=== PATIENT | female | born 2005 | race Caucasian/White ===

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

== ENCOUNTER 2024-01-30 11:16 | Outpatient (REF) | payer SELFPAY ==
[2024-01-30 13:34] LABS: MANUAL DIFF FLAG NO
[2024-01-30 13:51] LABS: Basophils Percent Auto 0.5 % (0-2); Eosinophils Absolute Auto 0.1 X10*3/uL (0.0-0.4); Eosinophils Percent Auto 0.8 % (0-4); Hematocrit 42.2 % (37.0-47.0); Hemoglobin 14.4 g/dl (12.0-16.0); Imm Gran Abs Auto 0.02 X10*3/uL (0.00-0.03); Imm Gran Pct Auto 0.3 % (0.0-0.4); Lymphocytes Absolute Auto 2.9 X10*3/uL (1.2-4.9); Lymphocytes Percent Auto 47.4 % (20-40); Mean Corpuscular HGB Conc 34.1 g/dl (31.0-35.0); Mean Corpuscular Hemoglobin 29.8 pg (27.0-33.0); Mean Corpuscular Volume 87.2 fL (80.0-98.0); Mean Platelet Volume 10.2 fL (9.4-12.3); Monocytes Absolute Auto 0.4 X10*3/uL (0.1-1.2); Monocytes Percent Auto 6.9 % (2-11); Neutrophils Absolute Auto 2.7 x10*3/uL (2.0-8.3); Neutrophils Percent Auto 44.1 % (45-73); Platelet Count 291 X10*3/uL (160-400); Red Blood Count 4.84 X10*6/uL (4.20-5.50); White Blood Count 6.2 X10*3/uL (4.8-10.8)
[2024-01-30 14:09] LABS: Estimated Average Glucose 100 mg/dL; Hemoglobin A1c % 5.1 % (<6.0)
[2024-01-30 14:20] LABS: Alanine Aminotransferase 15 U/L (0-31); Albumin Level 4.7 g/dL (3.5-5.0); Alkaline Phosphatase 96 U/L (39-117); Anion Gap 16 (12-20); Aspartate Amino Transferase 17 U/L (5-31); Bilirubin Total 0.5 mg/dL (0.0-1.0); Blood Urea Nitrogen 8 mg/dL (9-16); Calcium 10.2 mg/dL (8.4-10.2); Carbon Dioxide 24 mmol/L (22-29); Chloride 104 mmol/L (96-108); Cholesterol 225 mg/dL (<200); Estimated Glomerular Filt Rate > 60; Glucose Random 94 mg/dL (60-115); HDL Cholesterol 45 mg/dL (>40); LDL Cholesterol Calculated 157 mg/dL (<100); Potassium 3.6 mmol/L (3.3-5.1); Sodium 140 mmol/L (135-145); TSH reflex Free T4 3.33 uIU/mL (0.32-4.0); Total Protein 8.2 g/dL (6.5-8.0); Triglycerides 119 mg/dL (<150)
[2024-01-31 05:26] LABS: HBS Num1 0.23 mIU/mL (0-7.99); HBc Num1 0.09 S/CO (0.00-0.79); HBsAGNum1 0.38 S/CO (0.00-0.99); HIV AB/AG Nonreactive (Nonreactive); HIV Num 1 0.06 S/CO (0.00-0.99); Hepatitis B Core Antibody Nonreactive (Nonreactive); Hepatitis B Surface Antigen Negative (Negative); ~HepC Num1 0.06 S/CO (0.00-0.79); ~Hepatitis B Surface Antibody NONREACTIVE (Nonreactive); ~Hepatitis C Antibody Nonreactive (Nonreactive)
== END 2024-01-30 11:17 | disposition home or self-care (01) ==
LOC: HO.HHCL 11:16
PROVIDERS: Visit Provider Nurse Practitioner
DX: E66.09 Other obesity due to excess calories (principal); R53.83 Other fatigue; Z11.3 Encounter for screening for infections with a predominantly sexual mode of transmission; Z68.31 Body mass index [BMI] 31.0-31.9, adult
CPT/HCPCS: 36415; 80053; 80061; 83036; 84443; 85025; 86704; 86706; 86803; 87340; 87389

== ENCOUNTER 2024-10-22 12:01 | Outpatient (REF) | payer MEDICAID, SELFPAY ==
[2024-10-22 13:06] LABS: MANUAL DIFF FLAG NO
[2024-10-22 13:19] LABS: Basophils Percent Auto 0.5 % (0-2); Eosinophils Percent Auto 0.3 % (0-4); Hematocrit 39.1 % (37.0-47.0); Hemoglobin 13.5 g/dl (12.0-16.0); Imm Gran Abs Auto 0.03 X10*3/uL (0.00-0.03); Imm Gran Pct Auto 0.5 % (0.0-0.4); Lymphocytes Absolute Auto 2.4 X10*3/uL (1.2-4.9); Lymphocytes Percent Auto 36.5 % (20-40); Mean Corpuscular HGB Conc 34.5 g/dl (31.0-35.0); Mean Corpuscular Hemoglobin 29.9 pg (27.0-33.0); Mean Corpuscular Volume 86.7 fL (80.0-98.0); Monocytes Absolute Auto 0.6 X10*3/uL (0.1-1.2); Monocytes Percent Auto 9.5 % (2-11); Neutrophils Absolute Auto 3.5 x10*3/uL (2.0-8.3); Neutrophils Percent Auto 52.7 % (45-73); Platelet Count 341 X10*3/uL (160-400); Red Blood Count 4.51 X10*6/uL (4.20-5.50); Red Cell Distribution Width 11.9 % (11.0-16.0); White Blood Count 6.7 X10*3/uL (4.8-10.8)
[2024-10-22 13:30] LABS: Anion Gap 16 (12-20); Blood Urea Nitrogen 11 mg/dL (9-16); Calcium 10.2 mg/dL (8.4-10.2); Carbon Dioxide 21 mmol/L (22-29); Chloride 108 mmol/L (96-108); Estimated Glomerular Filt Rate > 60; Glucose Random 92 mg/dL (60-115); Potassium 3.8 mmol/L (3.3-5.1); Sodium 141 mmol/L (135-145)
[2024-10-22 13:46] LABS: TSH reflex Free T4 1.92 uIU/mL (0.32-4.0); Vitamin D 25-OH Total 19.7 ng/mL (>30)
== END 2024-10-22 12:02 | disposition home or self-care (01) ==
LOC: HO.HHCL 12:01
PROVIDERS: Visit Provider Nurse Practitioner
DX: R53.83 Other fatigue (principal)
CPT/HCPCS: 36415; 80048; 82306; 84443; 85025

== ENCOUNTER 2025-05-20 12:47 | Outpatient (REF) | payer MEDICAID, SELFPAY ==
--- OUTSIDE RECORDS SUMMARY | 2025-05-18 14:30 | XMS_ITS | Encounter Summary ---
Author Organization [employer] Address [address] [facility] [address] [place] [address] Care Team Providers Care Sleeve Wheel Maker Name Role Phone Anayeli Mclaughlin NP Primary Care Provider [phone] Reason for Visit * Reason Comments Follow-up Encounter Details Date Type Department Care Team (Late st Contact Info) Description 05/18/2025 2:30 PM EDT Office Visit [facility] MEDICINE [address] [place] [address] Anayeli Mclaughlin NP [address] [place] [address] Constipation, unspecified constipation type (Primary Dx); Hypovitaminosis D; Anxiety and depression Social History Tobacco Use Types Packs/Day Years Used Date Smoking Tobacco: Never Passive Smoke Exposure: Past Smokeless Tobacco: Never Comments:Pt states she has q uit smoking weed/ Hooka for 1 year . Use to vape for 2 years, has stopped for 3 years now Alcohol Use Standard Drinks/Week Comments Yes 1 (1 standard drink = 0.6 oz pure alcohol) drinks wine socially at parties Depression Answer Date Recorded Patient Health Questionnaire-9 Score 9 05/18/2025 Patient Health Questionnaire-9 Score 9 05/18/2025 Last PHQ-9: Questionnaire Data Not on file 0 05/18/2025 Housing Stability Answer Date Recorded What is your housing situation today? I am not s ure 05/18/[address] you li ve. Do you have problems with any of the following? None of the above 05/18/2025 Food Insecurity Answer Date Recorded Within the past 12 months, y ou worried that your food would run out before you got money to buy more: Never True 05/18/2025 Within the past 12 months,th e food you bought just didn't last and you didn't have enough money to get more: Never True 08/2025 Transportation Answer Date Recorded In the past 12 months, has l ack of transportation kept you from medical appts, meetings, work or from getting things needed for daily living? No 05/18/2025 Utilities Answer Date Recorded In the past 12 months, has t he electric, gas, oil or water company threatened to shut off services in your home? No 05/18/2025 Depression Answer Date Recorded Patient Health Questionnaire-2 Score 2 05/18/2025 Internet Access Answer Date Recorded Internet Access Q1 Yes 05/18/2025 Internet Access Q2 Not on file 05/18/2025 Comments No Sex and Gender Information Value Date Recorded Sex Assigned at Female 08/07/2022 10:19 AM EDT Legal Sex Female 10:19 AM EDT Gender Identity Female 08/07/2022 10:19 AM EDT Sexual Orientation Straight 06/20/2023 12 :44 PM EDT documented as of this encounter Last Filed Vital Signs Vital Sign Reading Time Taken Comments Blood Pressure 110/80 05/18/2025 2:48 PM EDT Pulse 86 05/18/2025 2:48 PM EDT Temperature 37.1 C (98.8 F) 05/18/2025 2:48 PM EDT Respiratory Rate 22 05/18/2025 2:48 PM EDT Oxygen Saturation 99% 05/18/2025 2:48 PM EDT Inhaled Oxygen Concentration - - Weight 71.8 kg (158 lb 6.4 oz) 05/18/2025 2:48 P M EDT Height 160 cm (5' 3 ) 05/18/2025 2:48 PM EDT Body Mass Index 28.06 05/18/2025 2:48 PM EDT documented in this encounter Functional Status * Over the past 2 weeks, how often have you been bothered by any of the following problems? Question Answer Date of Assessment Author Patient Health Questionnaire -2 Score 2 05/18/2025 2:51 PM EDT Efrem Alatorre [place] * Little interest or pleasure in doing things Answer Date of Assessment Author More than half the days 05/18/2025 2:51 PM EDT Efrem Saunders [place] * Feeling down, depressed, or hopeless Answer Date of Assessment Author Not at all 05/18/2025 2:51 PM EDT Efrem Alatorre [place] * Trouble falling or staying asleep, or sleeping too much Answer Date of Assessment Author Several days 05/18/2025 2:51 PM EDT Efrem Alatorre MA * Feeling tired or having little energy Answer Date of Assessment Author Nearly every day 05/18/2025 2:51 PM EDT Efrem Alatorre [place] * Poor appetite or overeating Answer Date of Assessment Author Several days 05/18/2025 2:51 PM EDT Efrem Alatorre MA * Feeling bad about yourself - or that you are a failure or have let yourself or your family down Answer Date of Assessment Author Not at all 05/18/2025 2:51 PM EDT Efrem Alatorre MA * Trouble concentrating on things, such as reading the newspaper or watching television Answer Date of Assessment Author Several days 05/18/2025 2:51 PM EDT Efrem Alatorre MA * Moving or speaking so slowly that other people could have noticed? Or the opposite - being so fidgety or restless that you have been moving around a lot more than usual. Answer Date of Assessment Author Several days 05/18/2025 2:51 PM INEZT Efrem Alatorre MA * Thoughts that you would be better off or hurting yourself in some way Answer Date of Assessment Author Not at all 05/18/2025 2:51 PM INEZT Efrem Alatorre MA * Patient Health Questionnaire-9 Score Answer Date of Assessment Author 9 05/18/2025 2:51 PM INEZT Efrem Alatorre MA * How difficult have these problems made it for you to do your work, take care of things at home, or get along with other people? Answer Date of Assessment Author Somewhat difficult 05/18/2025 2:51 PM EDT Efrem Lobo MA * Over the last 2 weeks, how often have you been bothered by any of the following problems? Question Answer Date of Assessment Author Feeling nervous, anxious, or on edge 2 05/18/2025 2:50 PM EDT Efrem Alatorre MA Not being able to stop or co ntrol worrying 3 05/18/2025 2:50 PM EDT Efrem Alatorre MA Worrying too much about diff erent things 2 05/18/2025 2:50 PM EDT Efrem Alatorre MA Trouble relaxing 2 05/18/2025 2:50 PM EDT Efrem Saunders MA Being so restless that it is hard to sit still 2 05/18/2025 2:50 PM EDT Efrem Alatorre MA Becoming easily annoyed or irritable 3 05/18/2025 2:50 PM EDT Efrem Alatorre MA Feeling afraid as if somethi ng awful might happen 2 05/18/2025 2:50 PM EDT Efrem Alatorre MA MISTI-7 Total Score 16 05/18/2025 2:50 PM EDT Efrem Alatorre MA documented as of this encounter Plan of Treatment Upcoming Encounters Date Type Department Care Team (Late st Contact Info) Description 05/25/2025 3:30 PM EDT Telemedicine [facility] MEDICINE [address] [place] [id number] Anayeli Mclaughlin NP [address] [place] [address] 06/05/2025 1:00 PM EDT Office Visit [facility] OPTOMETRY [address] [place] [address] Funmilayo Umana OD [address] [place] [address] 07/02/2025 1:00 PM EDT Clinical Support [facility] MEDICINE [address] [place] [phone] documented as of this encounter Visit Diagnoses Diagnosis Constipation, unspecified constipation type- Primary Hypovitaminosis D Unspecified vitamin D deficiency Anxiety and depression documented in this encounter Additional Health Concerns Assessment Noted Time PHQ-9 Depression Total Score: 9 05/18/20 25 2:51 PM EDT documented as of this encounter Care Teams Sleeve Wheel Maker Relationship Specialty Start Date End Date Anayeli Mclaughlin NP [address] [place] [address] PCP - General Family Medicine 09/13/23 documented as of this encounter
--- NOTE | ~2025-05-20 | US_ITS ---
EXAMINATION: US ABDOMEN HISTORY: LOWER ABDOMINAL PAIN TECHNIQUE: Real-time grayscale ultrasound imaging of the abdomen was performed and images were reviewed. COMPARISON: There are no prior studies available for comparison. FINDINGS: Liver: The right lobe of the liver measures 13.0 cm in size. The left lobe of the liver measures 8.4 cm in size. The liver demonstrates normal homogeneous echotexture. No focal mass or intrahepatic biliary ductal dilatation is identified. There is normal hepatopedal flow in the portal vein. Gallbladder and biliary tree: The gallbladder is unremarkable, without evidence of calculi, wall thickening, or pericholecystic fluid. There is no sonographic Bowens sign. The common bile duct is normal in caliber measuring 3 mm. Kidneys: The right kidney measures 9.5 cm in length. The left kidney measures 9.6 cm in length. The kidneys are unremarkable, without evidence of masses, hydronephrosis, or calculi. Pancreas: The pancreas is not well visualized. Spleen: The spleen is normal in size and contour, measuring 9.9 cm in length. Abdominal aorta and inferior vena cava: The visualized portions of the abdominal aorta and inferior vena cava are normal in caliber. There is no free fluid in the abdomen. US/US abdomen complete IMPRESSION: The pancreas is not well visualized. Otherwise unremarkable abdominal ultrasound. Electronically signed by: Denis eGorge MD 05/20/2025 01:33 PM EDT
--- OUTSIDE RECORDS SUMMARY | 2025-05-20 13:16 | XMS_ITS | Encounter Summary ---
Author Organization [facility] Address [address] [place] [address] Phone Care Team Providers Care Chute Builder Name Role Phone Unavailable Primary Care Provider Unavailabl e Encounter Details Date Type Department Care Team (Late st Contact Info) Description 05/24/2017 Conversion Encounter [facility] - [address] [address] Social History Tobacco Use Types Packs/Day Years Used Date Smoking Tobacco: Never Assessed Comments Unknown Sex and Gender Information Value Date Recorded Sex Assigned at Not on file Legal Sex Female 4:14 PM EDT Gender Identity Not on file Sexual Orientation Not on file documented as of this encounter Plan of Treatment Not on file documented as of this encounter Visit Diagnoses Not on filedocumented in this encounter
== END 2025-05-20 12:48 | disposition home or self-care (01) ==
LOC: HO.US 12:47
PROVIDERS: Visit Provider Nurse Practitioner
DX: R10.30 Lower abdominal pain, unspecified (principal)
CPT/HCPCS: 76700

== ENCOUNTER → 2025-05-20 13:00 | Outpatient (BNV) | payer MEDICAID, SELFPAY | PROVIDERS: Visit Provider Radiology Diagnostic Radiology | DX: R10.30 Lower abdominal pain, unspecified (principal) | CPT/HCPCS: 76700 ==

== ENCOUNTER 2025-07-02 16:28 | Outpatient (REF) | payer MEDICAID, SELFPAY ==
--- OUTSIDE RECORDS SUMMARY | 2025-07-02 13:40 | XMS_ITS | Encounter Summary ---
Author Organization [employer] Address [address] [facility] 7 [place] [address] Care Team Providers Care Hydrochloric Area Supervisor Name Role Phone Anayeli Mclaughlin NP Primary Care Provider [phone] Reason for Visit * Reason Comments Depo Encounter Details Date Type Department Care Team ([facility] st Contact Info) Description 07/02/2025 1:40 PM EDT Office Visit [facility] [address] [place] [address] Princess Jimenez MD [address] [place] [address] Chest wall pain (Primary Dx); Encounter for counseling regarding contraception; Perineal pain in female; Chronic constipation Social History Tobacco Use Types Packs/Day Years Used Date Smoking Tobacco: Never Passive Smoke Exposure: Past Smokeless Tobacco: Never Tobacco Cessation:Counseling Given: Not Answered Comments:Pt states she has quit smoking weed/ Hooka for 1 year . [...] Sign Reading Time Taken Comments Blood Pressure 121/74 07/02/2025 1:28 PM EDT Pulse 97 07/02/2025 1:28 PM EDT Temperature 36.7 C (98 F) 07/02/2025 1:28 PM EDT Respiratory Rate 16 07/02/2025 1:28 PM EDT Oxygen Saturation 99% 07/02/2025 1:28 PM EDT Inhaled Oxygen Concentration - - Weight 71.7 kg (158 lb) 07/02/2025 1:28 PM EDT Height - - Body Mass Index 27.99 05/18/2025 2:48 PM EDT documented in this encounter Progress Notes * Princess Jimenez MD - 07/02/2025 1:20 PM EDT JUANA Sharma is a 19 y.o. female patient of Anayeli Mclaughlin NP who presents for chestwall pain and perineal pain. HPI Florencia was at the clinic today for a depo shot, but she told the nurse she was having chest wall pain after having some cough this past week. The cough is now resolved. It started after some nasal congestion, sore throat and subjective chills, but the cough is now resolved. Reports the pain is sharp, occurs with sneezing, sometimes with deep breathing or coughing, sometimes at night. Denies palpitations, leg swelling. She is also concerned about some pulsing clitoral pain associated with a yellowish discharge. Uses condoms during intercourse. No dysuria. Review of Systems Constitutional: Positive for chills. Negative for fever. HENT: Positive for congestion and sneezing. Negative for ear pain, postnasal drip and rhinorrhea. Respiratory: Positive for cough (resolved). Negative for apnea and shortness of breath. Cardiovascular: Positive for chest pain. Negative for palpitations and leg swelling. Gastrointestinal: Positive for abdominal distention (intermittent), abdominal pain (intermittent) and constipation. Genitourinary: Positive for vaginal discharge. Negative for difficulty urinating, dyspareunia, dysuria, flank pain and urgency. OBJECTIVE BP 121/74 (BP Location: Right arm, Patient Position: Sitting, BP Cuff Size: Adult) Pulse 97 Temp 98 ??F (36.7 ??C) (Temporal) Resp 16 Wt 158 lb (71.7 kg) SpO2 99% BMI 27.99 kg/m?? Repeat pulse: 72 bpm Physical Exam HENT: Head: Normocephalic. Right Ear: Tympanic membrane, ear canal and external ear normal. Left Ear: Tympanic membrane, ear canal and external ear normal. Nose: Nose normal. Mouth/Throat: Mouth: Mucous membranes are moist. Pharynx: Posterior oropharyngeal erythema (mild) present. Tonsils: 2+ on the right. 2+ on the left. Cardiovascular: Rate and Rhythm: Normal rate and regular rhythm. Pulses: Normal pulses. Heart sounds: Normal heart sounds. Pulmonary: Effort: Pulmonary effort is normal. Breath sounds: Normal breath sounds. Chest: Chest wall: Tenderness (mild below left breast, mid-clavicular line left side) present. Abdominal: General: Abdomen is flat. Bowel sounds are normal. There is no distension. Palpations: Abdomen is soft. There is no mass. Tenderness: There is abdominal tenderness (epigastric, suprapubic). There is no right CVA tenderness, left CVA tenderness, guarding or rebound. Hernia: No hernia is present. Musculoskeletal: Right lower leg: No edema. Left lower leg: No edema. Lymphadenopathy: Cervical: No cervical adenopathy. Skin: General: Skin is warm and dry. Capillary Refill: Capillary refill takes less than 2 seconds. Neurological: General: No focal deficit present. Mental Status: She is alert. Psychiatric: Mood and Affect: Mood normal. Behavior: Behavior normal. Assessment/Plan Assessment/Plan Diagnoses and all orders for this visit: Chest wall pain: No palpable crepitance and no bruising or rash. Normal breath sounds and vitals. Recommended OTC ibuprofen or Tylenol as needed and to RTC if pain persists or worsens. Perineal pain in female: Declined physical examination of perineum. Given vaginal discharge, will check for BV and STIs. UA today normal x for trace ketones; she reports not eating anything yet todayas of 2pm. - Chlamydia/N. Gonorrhoeae RNA, TMA, Urogenitial - Bacterial Vaginosis - POCT urinalysis dipstick manually resulted Chronic constipation Has tried eating additional fruits and vegetables without improvement. Eats oatmeal somewhat regularly. Has not tried psyllium because insurance won't cover it. Drinks lots of water. I gave her handout from [employer] Date re: constipation in adults, and we reviewed the foods that are high in fiber, like beans, prunes. Also told her to try OTC generic psyllium 1 tsp/day in 8 oz water and to titrate up. Encounter for counseling regarding contraception - POCT Urine Future Appointments Date Time Provider Department Center 07/10/2025 3:30 PM Anayeli Mclaughlin NP MEDICINE [facility] 09/22/2025 10:30 AM Funmilayo Umana OD VISION [facility] documented in this encounter Plan of Treatment Upcoming Encounters Date Type Department Care Team (Late st Contact Info) Description 07/10/2025 3:30 PM EDT Telemedicine [facility] [address] [place] [address] Anayeli Mclaughlin NP [address] [place] [address] 09/17/2025 1:00 PM EST Clinical Support [facility] [address] [place] [address] 09/22/2025 10:30 AM EST Office Visit [facility] [address] [place] [address] Funmilayo Umana, OD [address] [place] [address] documented as of this encounter Procedures Procedure Name Priority Date/Time Associated Diagnosis Comments POCT URINALYSIS DIPSTICK Routine 07/02/2025 2:11 PM EDT Encounter for counseling regarding contraception BACTERIAL VAGINOSIS PANEL Routine 07/02/2025 1:56 PM EDT Encounter for counseling regarding contraception CHLAMYDIA/N. GONORRHOEAE RNA, TMA, UROGENITAL Routine 07/02/2025 1:56 PM EDT Encounter for counseling regarding contraception POCT , URINE Routine 07/02/2025 1:00 PM EDT Encounter for counseling regarding contraception documented in this encounter Results * POCT urinalysis dipstick manually resulted (07/02/2025 2:11 PM EDT) Color, UA Yellow Clarity, UA Clear Glucose, UA Negative Bilirubin, UA Negative Ketones, UA Negative Spec Grav, UA 1.020 Blood, UA Negative Negative, None Detected pH, UA 6.0 Protein, UA Negative Urobilinogen, UA 1.0 Leukocytes, UA Negative Negative, Rare, Trace Nitrite, UA Negative Negative, None Detected Appearance, UA OK Urine 07/02/2025 2:11 PM EDT Princess Jimenez MD POINT OF CARE TEST ENTER/EDIT ORDERABLES Final Result * Bacterial Vaginosis (07/02/2025 1:56 PM EDT) TRICHOMONAS VAGINALIS DETECTION BY PCR NOT DETECTED Not Detect [facility] BACTERIAL VAGINOSIS DETECTION BY PCR NEGATIVE Negative [facility] Comment:The BV organism targ ets of the Xpert Xpress MVP test can becommensal in women; Xpert Xpress MVP positive results forbacterial vaginosis should be considered in conjunction withother clinical and patient information to determine thedisease status. Organisms that are not detected by the XpertXpress MVP test have also been reported to be associatedwith BV and aerobic vaginitis.The Xpert Xpress MVP test performance has not been evaluatedin patients under the age of 14. DELANEY GROUP DETECTION BY PCR NOT DETECTED Not Detect [facility] Delaney glab krusei PCR NOT DETECTED Not Detect [facility] Swab Vaginal structure / Unknown 07/02/2025 1:56 PM EDT 07/02/2025 4:29 PM EDT us Princess Jimenez MD LAB MICROBIOLOGY - GENERAL OR DERABLES Final Result [facility] [address] [place] [phone] * Chlamydia/N. Gonorrhoeae RNA, TMA, Urogenitial (07/02/2025 1:56 PM EDT) CT PCR NOT DETECTED Not Detect. [facility] Comment:A not detected test result does not exclude the possibilityof infection because test results can be affected byimproper specimen collection, concurrent antibiotic therapy,or the number of organisms in the specimen which may bebelow the sensitivity of the test. As with many diagnostictests, results from the Xpert CT/NG assay should beinterpreted in conjunction with other laboratory andclinical data available to the clinician.Xpert CT/NG performance has not been evaluated in patientsless than 14 years of age. The assay should not be used forthe evaluationof suspected sexual abuse or for other medico-legalindications. Additional testing is recommended in anycircumstance when false positive or false negative resultscould lead to adverse medical, social or psychologicalconsequences. NG PCR NOT DETECTED Not Detect. [facility] Comment:A not detected test result does not exclude the possibilityof infection because test results can be affected byimproper specimen collection, concurrent antibiotic therapy,or the number of organisms in the specimen which may bebelow the sensitivity of the test. As with many diagnostictests, results from the Xpert CT/NG assay should beinterpreted in conjunction with other laboratory andclinical data available to the clinician.Xpert CT/NG performance has not been evaluated in patientsless than 14 years of age. The assay should not be used forthe evaluationof suspected sexual abuse or for other medico-legalindications. Additional testing is recommended in anycircumstance when false positive or false negative resultscould lead to adverse medical, social or psychologicalconsequences. Swab (Vaginal Swab) 07/02/2025 1:56 PM EDT 07/02/2025 4:29 PM EDT Princess Jimenez MD LAB MICROBIOLOGY - GENERAL OR DERABLES Final Result [facility] [address] [place] [phone] * POCT Urine (07/02/2025 1:00 PM EDT) Preg Test, Ur Negative Negative, Indeterminate, None Detected, Invalid, Specimen unsatisfactory for evaluation, Weakly Positive, 2+ QC Media Lot # [id number] Lot# Expiration Date [id number] Urine 07/02/2025 1:00 PM EDT Princess Jimenez MD POINT OF CARE TEST ENTER/EDIT ORDERABLES Final Result documented in this encounter Visit Diagnoses Diagnosis Chest wall pain- Primary Painful respiration Encounter for counseling regarding contraception Perineal pain in female Unspecified symptom associated with female genital organs Chronic constipation Unspecified constipation documented in this encounter Additional Health Concerns Assessment Noted Time PHQ-9 Depression Total Score: 9 05/18/20 25 2:51 PM EDT documented as of this encounter Care Teams Hydrochloric Area Supervisor Relationship Specialty Start Date End Date Anayeli Mclaughlin NP [address] [place] [id number] PCP - General Family Medicine 09/13/23 documented as of this encounter
[2025-07-02 17:52] LABS: Bacterial Vaginosis PCR NEGATIVE (Negative); Candida Group PCR NOT DETECTED (Not Detect); Candida glab krusei PCR NOT DETECTED (Not Detect); Trichomonas vaginalis PCR NOT DETECTED (Not Detect)
[2025-07-02 18:24] LABS: CT PCR NOT DETECTED (Not Detect.); NG PCR NOT DETECTED (Not Detect.)
--- OUTSIDE RECORDS SUMMARY | 2025-07-02 19:56 | XMS_ITS | Encounter Summary ---
Author Organization [employer] Address [address] [place] [address] 7 [place] [address] Care Team Providers Care Nursing Admin Name Role Phone Rahel Crain MD Primary Care Provider [phone] Anayeli Mclaughlin NP Primary Care Provider [phone] Reason for Visit * Reason Comments Med Refill Encounter Details Date Type Department Care Team (Late st Contact Info) Description 05/09/2023 Refill [facility] [address] [place] [address] Rahel Crain MD [address] [place] [address] Mixed anxiety and depressive disorder; Gastroesophageal reflux disease without esophagitis Social History Tobacco Use Types Packs/Day Years Used Date Smoking Tobacco: Some Days Cigarettes Passive Smoke Exposure: Past Smokeless Tobacco: Never Comments:Pt states she has q uit smoking weed/ Hooka for 1 year . Alcohol Use Standard Drinks/Week Comments Not Currently 0 (1 standard drink = 0.6 oz pur e alcohol) Depression Answer Date Recorded Patient Health Questionnaire-9 Score 9 04/06/2023 Depression Answer Date Recorded Patient Health Questionnaire-2 Score 2 04/06/2023 Comments Unknown Sex and Gender Information Value Date Recorded Sex Assigned at Female 08/07/2022 10:19 AM EDT Legal Sex Female 10:19 AM EDT Gender Identity Female 08/07/2022 10:19 AM EDT Sexual Orientation Straight 06/20/2023 12 :44 PM EDT COVID-19 Exposure Response Date Recorded In the last 10 days, have yo u been in contact with someone who was confirmed or suspected to have Coronavirus/COVID-19? No / Unsure 04/11/2023 2:20 PM EDT documented as of this encounter Plan of Treatment Upcoming Encounters Date Type Department Care Team (Late st Contact Info) Description 07/10/2025 3:30 PM EDT Telemedicine [facility] [address] [place] [phone] Anayeli Mclaughlin NP [address] [place] [address] 09/17/2025 1:00 PM EST Clinical Support [facility] [address] [place] [address] 09/22/2025 10:30 AM EST Office Visit [facility] [address] [place] [address] TarFunmilayo chávez, OD [address] [place] [address] documented as of this encounter Visit Diagnoses Diagnosis Mixed anxiety and depressive disorder Dysthymic disorder Gastroesophageal reflux disease without esophagitis Esophageal reflux documented in this encounter Additional Health Concerns Assessment Noted Time PHQ-9 Depression Total Score: 9 04/06/20 23 9:51 AM EDT documented as of this encounter Care Teams Nursing Admin Relationship Specialty Start Date End Date Rahel Crain MD [address] [place] [id number] PCP - General Pediatrics 06/06/18 09/12/23 Anayeli Mclaughlin NP [address] [place] [address] PCP - General Family Medicine 09/13/23 documented as of this encounter
--- OUTSIDE RECORDS SUMMARY | 2025-07-02 19:56 | XMS_ITS | Encounter Summary ---
Author Organization [email or web address] Address [address] [place] [address] 7 [place] [address] Care Team Providers Care Clinical Nurse Name Role Phone Mikkiroshni Anayeli DUNG Primary Care Provider Encounter Details Date Type Department Care Team (Late Contact Info) Description 09/13/2023 Orders Only [facility] [address] [place] [address] Rahel Crain MD [address] [place] [address] Social History Tobacco Use Types Packs/Day Years Used Date Smoking Tobacco: Some Days Cigarettes Passive Smoke Exposure: Past Smokeless Tobacco: Never Comments:Pt states she has q uit smoking weed/ Hooka for 1 year . Alcohol Use Standard Drinks/Week Comments Not Currently 0 (1 standard drink = 0.6 oz pur e alcohol) Depression Answer Date Recorded Patient Health Questionnaire-9 Score 11 08/02/2023 Patient Health Questionnaire-9 Score 11 08/02/2023 Last PHQ-9: Questionnaire Data Not on file 1 Depression Answer Date Recorded Patient Health Questionnaire-2 Score 4 08/02/2023 Comments Unknown Sex and Gender Information Value Date Recorded Sex Assigned at Female 08/07/2022 10:19 AM EDT Legal Sex Female 10:19 AM EDT Gender Identity Female 08/07/2022 10:19 AM EDT Sexual Orientation Straight 06/20/2023 12 :44 PM EDT documented as of this encounter Plan of Treatment Upcoming Encounters Date Type Department Care Team (Late Contact Info) Description 07/10/2025 3:30 PM EDT Telemedicine [facility] [address] [place] [address] Anayeli Mclaughlin NP [address] [place] [address] 09/17/2025 1:00 PM EST Clinical Support [facility] [address] [place] [phone] 09/22/2025 10:30 AM EST Office Visit [facility] [address] [place] [address] Tarka, Funmilayo, OD [address] [place] [address] documented as of this encounter Visit Diagnoses Not on filedocumented in this encounter Additional Health Concerns Assessment Noted Time PHQ-9 Depression Total Score: 11 023 9:20 AM EDT documented as of this encounter Care Teams Clinical Nurse Relationship Specialty Start Date End Date Anayeli Mclaughlin NP [address] [place] [phone] PCP - General Family Medicine 09/13/23 documented as of this encounter
--- OUTSIDE RECORDS SUMMARY | 2025-07-02 19:56 | XMS_ITS | Clinical Summary ---
Author Organization [facility] Address [address] [place] [address] Phone Care Team Providers Care Photolith Operator Name Role Phone Unavailable Primary Care Provider Unavailabl e Immunizations Immunization Administration Dates Next Due DTaP 5 03/26/2006,04/03/2005,01/30/2005 ,2004 Hep B, ped/adol 04/03/2005,2004,2004 Hib (PRP-T) 03/26/2006,01/30/2005,2004 IPV 04/03/2005,01/30/2005,2004 MMR 10/10/2005 Pneumococcal Conjugate 03/26/2006,04/03/2005,,2004 Family History Relation Name Status Comments Mother Alive Mother: Alive a nd well Other 1 grandfather: El evated cholesterol Other 2 Alive grandmother: As thma migraines Social History Tobacco Use Types Packs/Day Years Used Date Smoking Tobacco: Never Assessed Comments Unknown Sex and Gender Information Value Date Recorded Sex Assigned at Not on file Legal Sex Female 4:14 PM EDT Gender Identity Not on file Sexual Orientation Not on file Plan of Treatment Health Maintenance Due Date Last Done Comments IPV Vaccines (4 of 4 - 4-dose series) 2008 04/03/2005, 01/30/2005, 2004 DTaP,Tdap,and Td Vaccines (5 - Tdap) 2015 03/26/2006, 04/03/2005, 01/30/2005, Additional history exists Varicella Vaccines (1 of 2 - 13+ 2-dose series) 2017 HPV Vaccines (1 - 3-dose series) 2019 Men B Vaccine (1 of 2 - Standard) 2020 Influenza Vaccines (#1) 2025 COVID-19 Vaccine ( season) 2025 Hepatitis B Vaccines Completed 04/03/2005, 2004, 2004 MMR Vaccines Completed 10/10/2005 HIB Vaccines Completed 03/26/2006, 01/07, 2004 Pneumococcal Vaccine Completed 03/26/2006, 04/03/2005, 01/30/2005, Additional history exists Hepatitis A Vaccines Aged Out No long er eligible based on patient's age to complete this topic Meningococcal Vaccine Aged Out No pari vero eligible based on patient's age to complete this topic
--- OUTSIDE RECORDS SUMMARY | 2025-07-02 19:56 | XMS_ITS | Encounter Summary ---
Author Organization [employer] Address [address] [place] [address] 7 [place] [address] Care Team Providers Care Supervisor [employer] Vault Name Role Phone Mikkiroshni Anayeli RAZO Primary Care Provider [phone] Reason for Visit * Reason Onset Date Comments Med Refill 10/25/2023 Encounter Details Date Type Department Care Team (Late st Contact Info) Description 10/25/2023 Refill [facility] [address] [place] [address] Rahel Crain MD [address] [place] [address] Mixed anxiety and depressive disorder; Difficulty sleeping; Other fatigue; Lumbar spine pain Social History Tobacco Use Types Packs/Day Years [...] PM EDT documented as of this encounter Miscellaneous Notes * Telephone Encounter - Anayeli Mclaughlin NP - 10/29/2023 9:17 PM EST Approving, but needs appt for additional refills. documented in this encounter Plan of Treatment Upcoming Encounters Date Type Department Care Team (Late st Contact Info) Description 07/10/2025 3:30 PM EDT Telemedicine [facility] MED[facility] [address] [place] [address] Anayeli Mclaughlin NP [address] [place] [address] 09/17/2025 1:00 PM EST Clinical Support [facility] [address] [place] [address] 09/22/2025 10:30 AM EST Office Visit [facility] [address] [place] [address] TarkaFunmilayo, OD [address] [place] [address] documented as of this encounter Visit Diagnoses Diagnosis Mixed anxiety and depressive disorder Dysthymic disorder Difficulty sleeping Unspecified sleep disturbance Other fatigue Lumbar spine pain documented in this encounter Additional Health Concerns Assessment Noted Time PHQ-9 Depression Total Score: 11 023 9:20 AM EDT documented as of this encounter Care Teams Supervisor Securities Vault Relationship Specialty Start Date End Date Anayeli Mclaughlin NP [address] [place] [address] PCP - General Family Medicine 09/13/23 documented as of this encounter
--- OUTSIDE RECORDS SUMMARY | 2025-07-02 19:56 | XMS_ITS | Encounter Summary ---
Author Organization [employer] Address [address] [place] [address] [address] [place] [address] Care Team Providers Care Television Repairman Name Role Phone Rahel Crain MD Primary Care Provider [phone] Anayeli Mclaughlin NP Primary Care Provider [phone] Encounter Details Date Type Department Care Team (Late st Contact Info) Description 01/08/2023 Orders Only [facility] [address] [place] [address] Traci Huff LPN Social History Tobacco Use Types Packs/Day Years Used Date Smoking Tobacco: Some Days Cigarettes Passive Smoke Exposure: Past Comments:Pt states she has q uit smoking weed/ Hooka for 1 year . Comments Unknown Sex and Gender Information Value Date Recorded Sex Assigned at Female 08/07/2022 10:19 AM EDT Legal Sex Female 10:19 AM EDT Gender Identity Female 08/07/2022 10:19 AM EDT Sexual Orientation Straight 06/20/2023 12 :44 PM EDT documented as of this encounter Plan of Treatment Upcoming Encounters Date Type Department Care Team (Late Contact Info) Description 07/10/2025 3:30 PM EDT Telemedicine [address] [address] Anayeli Mclaughlin NP [address] [place] [address] 09/17/2025 1:00 PM EST Clinical Support [address] [address] 09/22/2025 10:30 AM EST Office Visit [facility] [address] [place], [place] [id number] Funmilayo Umana, OD [address] [place] [address] documented as of this encounter Visit Diagnoses Not on filedocumented in this encounter Care Teams Television Repairman Relationship Specialty Start Date End Date Rahel Crain MD [address] [place] [address] PCP - General Pediatrics 06/06/18 09/12/23 Anayeli Mclaughlin NP [address] [place] [address] PCP - General Family Medicine 09/13/23 documented as of this encounter
--- OUTSIDE RECORDS SUMMARY | 2025-07-02 19:56 | XMS_ITS | Encounter Summary ---
Author Organization [employer] Address [address] [facility] 7 [place] [address] Care Team Providers Care Mold Swabber Name Role Phone Anayeli Mclaughlin NP Primary Care Provider [phone] Reason for Visit * Reason Onset Date Comments Contraception 07/02/2025 Triage Note 07/02/2025 Encounter Details Date Type Department Care Team ([facility] st Contact Info) Description 07/02/2025 Telephone [facility] MEDICINE [address] [place] [address] Anayeli Mclaughlin NP [address] [place] [address] Contraception; Triage Note Social History Tobacco Use Types Packs/Day Years [...] encounter Miscellaneous Notes * Telephone Encounter - Narcisa Chen RN - 07/02/2025 1:32 PM EDT SUBJECTIVE: Florencia Sharma is a 19 y.o. year old female who presents for contraception with Depo-Provera. Florencia Sharma denies significant side effects from last injection. Pt reports they currently use depo-provera and condoms as methods for control. Pt reports experiencing pain withurination x 1 week. Pt denies burning with urination or odor to urine. Pt reports they have pain intheir lower left side of their back that occurs primarily while laying down. Pt reports pain has caused them to have difficulty sleeping. Pt reports pain under left breast that occurs when they sneeze. Pt reports they were experiencing a cold for approximately 1 week experiencing congestion and cough. Pt reports cough stopped yesterday. Pt reports they are happy with their current method of control. Pt was provided with condoms at time of visit. Advised pt depo provera only protects against and does not protect against sexually transmitted infections. Pt reports the do not smoke cigarettes. Pt reports they do smokemarijuana. Standing order verified, last placed on 08/20/24. Patient has no known allergies. Immunization History Administered Date(s) Administered DTaP 2004, 01/30/2005, 04/03/2005, 03/26/2006 HPV 9-Valent 11/08/2017, 04/25/2019 Hep A, ped/adol, 2 dose 08/10/2010, 04/15/2018 Hep B, Adolescent or Pediatric 2004, 2004, 04/03/2005 Hep B, adult 01/23/2025 Hib (HbOC) 2004, 01/30/2005, 03/26/2006 IPV 2004, 01/30/2005, 04/03/2005, 03/08/2009 Influenza injectable quadrivalent preservative free 11/08/2017, 10/14/2020 Influenza, IIV3, injectable 07/25/2006, 08/25/2006, 08/21/2007 Influenza, Split (incl. purified surface antigen) 06/03/2012 MMR 10/10/2005, 03/08/2009 Meningococcal MCV4P ACYW-135 11/08/2017, 12/10/2020 Pfizer Covid-19 Vaccine 12+ 06/16/2021, 07/07/2021 Pneumococcal Conjugate PCV 7 2004, 01/30/2005, 04/03/2005, 03/26/2006 Tdap 11/08/2017 Varicella 10/10/2005, 03/08/2009 OBJECTIVE: Pt cannot recall exactly when they had their last menstrual period. Pt reports it has been approximately 3 months since their LMP. Pt reports they only experience a menstrual period on depo provera when they do not eat. Lab Results Component Value Date PREGTESTUR Negative 07/02/2025 No results found for: RAPIDCHGONTR , GONORRHOEAEP , TRICHOMONASR Lab Results Component Value Date HEPCAB Nonreactive 01/30/2024 intention: Pt does not want to be within the next year. Pt denies unprotected sex within the last 5 days. Pt denies unprotected sex since LMP. Contraception counseling provided: Yes I emphasized that switching methods is common, and that they can discontinue using any method at any time. After today's discussion, they would like to continue to use depo-provera. They can follow up at any time to discuss their contraceptive options, side effects they're experiencing, or to switch methods. Due to symptoms, pt was booked for a provider visit in [facility] today 07/02/25 at 1:20 PM. ASSESSMENT: Contraceptive Management PLAN: Florencia Sharma scheduled in [facility] at 1:20 PM. Pt walked down to [facility] for appointment. Depo Provera was not administered by this RN. Depo Provera given to [facility] RN Bhargavi Newsome administration. Report given to Walk in provider Princess Jimenez MD. Florencia Sharma agreeable to plan. Future Appointments Date Time Provider Department Center 07/02/2025 1:40 PM [facility] WALK-IN CLINIC 2 WALK-IN [facility] 07/10/2025 3:30 PM Anayeli Mclaughlin NP MEDICINE [facility] 09/22/2025 10:30 AM Funmilayo Umana OD VISION [facility] Narcisa Chen RN documented in this encounter Plan of Treatment Upcoming Encounters Date Type Department Care Team (Late st Contact Info) Description 07/10/2025 3:30 PM EDT Telemedicine [facility] MEDICINE [address] [place] [phone] Anayeli Mclaughlin NP [address] [place] [address] 09/17/2025 1:00 PM EST Clinical Support [facility] MEDICINE [address] [place] [address] 09/22/2025 10:30 AM EST Office Visit [facility] OPTOMETRY [address] [place] [address] Funmilayo Umana OD [address] [place] [address] documented as of this encounter Visit Diagnoses Not on filedocumented in this encounter Additional Health Concerns Assessment Noted Time PHQ-9 Depression Total Score: 9 05/18/20 2:51 PM EDT documented as of this encounter Care Teams Mold Swabber Relationship Specialty Start Date End Date Anayeli Mclaughlin NP [address] [place] [address] PCP - General Family Medicine 09/13/23 documented as of this encounter
--- OUTSIDE RECORDS SUMMARY | 2025-07-02 19:56 | XMS_ITS | Encounter Summary ---
Author Organization [employer] Address [address] [facility] 7 [place] [address] Care Team Providers Care Senior Label Specialist Name Role Phone Anayeli Mclaughlin NP Primary Care Provider [phone] Encounter Details Date Type Department Care Team ([facility] Contact Info) Description 05/21/2025 Results Follow-Up [facility] MEDICINE [address] [place] [address] Anayeli Mclaughlin NP [address] [place] [address] US Abdomen Complete Social History Tobacco Use Types Packs/Day Years [...] Info) Description 07/10/2025 3:30 PM EDT Telemedicine [facility] MEDICINE [address] [place] [phone] Anayeli Mclaughlin NP [address] [place] [address] 09/17/2025 1:00 PM EST Clinical Support [facility] MEDICINE [address] [place] [phone] 09/22/2025 10:30 AM EST Office Visit [facility] OPTOMETRY [address] [place] [address] Tarka, Funmilayo, OD [address] [place] [address] documented as of this encounter Visit Diagnoses Not on filedocumented in this encounter Additional Health Concerns Assessment Noted Time PHQ-9 Depression Total Score: 9 05/18/20 25 2:51 PM EDT documented as of this encounter Care Teams Senior Label Specialist Relationship Specialty Start Date End Date Anayeli Mclaughlin NP [address] [place] [address] PCP - General Family Medicine 09/13/23 documented as of this encounter
--- OUTSIDE RECORDS SUMMARY | 2025-07-02 19:56 | XMS_ITS | Encounter Summary ---
Author Organization [facility] Address [address] [place] [address] Phone Care Team Providers Care Park Aide Name Role Phone Unavailable Primary Care Provider Unavailabl e Encounter Details Date Type Department Care Team (Late st Contact Info) Description 05/24/2017 Conversion Encounter [facility] - [address] [address] Social History Tobacco Use Types Packs/Day Years [...]
--- OUTSIDE RECORDS SUMMARY | 2025-07-02 19:56 | XMS_ITS | Encounter Summary ---
Author Organization [employer] Address [address] [facility] [address] [place] [address] Care Team Providers Care Neon Sign Erector Name Role Phone Anayeli Mclaughlin NP Primary Care Provider [phone] Reason for Visit * Reason Onset Date Comments Med Refill 11/26/2024 Encounter Details Date Type Department Care Team ([facility] st Contact Info) Description 11/26/2024 Telephone [facility] MEDICINE [address] [place] [address] Anayeli Mclaughlin NP [address] [place] [address] Med Refill Social History Tobacco Use Types Packs/Day Years [...] Date Recorded Patient Health Questionnaire-9 Score 11 04/02/2024 Patient Health Questionnaire-9 Score 11 04/02/2024 Last PHQ-9: Questionnaire Data Not on file 0 04/02/2024 Housing Stability Answer Date Recorded What is your housing situation today? I have kourtney singer 01/23/[address] you li ve. Do you have problems with any of the following? None of the above 01/23/2024 Food Insecurity Answer Date Recorded Within the past 12 months, y ou worried that your food would run out before you got money to buy more: Never True 01/23/2024 Within the past 12 months,th e food you bought just didn't last and you didn't have enough money to get more: Never True Transportation Answer Date Recorded In the past 12 months, has l ack of transportation kept you from medical appts, meetings, work or from getting things needed for daily living? No 01/23/2024 Utilities Answer Date Recorded In the past 12 months, has t he electric, gas, oil or water company threatened to shut off services in your home? No 01/23/2024 Depression Answer Date Recorded Patient Health Questionnaire-2 Score 3 04/02/2024 Internet Access Answer Date Recorded Internet Access Q1 Yes 06/09/2024 Internet Access Q2 Not on file 06/09/2024 Comments No Sex and Gender Information Value Date Recorded Sex Assigned at Female 08/07/2022 10:19 AM EDT Legal Sex Female 10:19 AM EDT Gender Identity Female 08/07/2022 10:19 AM EDT Sexual Orientation Straight 06/20/2023 12 :44 PM EDT documented as of this encounter Plan of Treatment Upcoming Encounters Date Type Department Care Team (Late st Contact Info) Description 07/10/2025 3:30 PM EDT Telemedicine [facility] MEDICINE [address] [place] [phone] Anayeli Mclaughlin NP [address] [place] [address] 09/17/2025 1:00 PM EST Clinical Support [facility] MEDICINE [address] [place] [address] 09/22/2025 10:30 AM EST Office Visit [facility] OPTOMETRY [address] [place] [address] Funmilayo Umana, OD [address] [place] [address] documented as of this encounter Visit Diagnoses Diagnosis Anxiety and depression documented in this encounter Additional Health Concerns Assessment Noted Time PHQ-9 Depression Total Score: 11 024 9:42 AM EDT documented as of this encounter Care Teams Neon Sign Erector Relationship Specialty Start Date End Date Anayeli Mclaughlin NP [address] [place] [address] PCP - General Family Medicine 09/13/23 documented as of this encounter
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
--- OUTSIDE RECORDS SUMMARY | 2025-07-02 19:56 | XMS_ITS | Encounter Summary ---
Author Organization [employer] Address 75 [facility] 7 [place] [address] Care Team Providers Care Commercial Accountant Name Role Phone Anayeli Mclaughlin NP Primary Care Provider [phone] Reason for Visit * Reason Comments Med Refill Encounter Details Date Type Department Care Team ([facility] st Contact Info) Description 03/24/2024 Refill [facility] MEDICINE [address] [place] [address] Anayeli Mclaughlin NP [address] [place] [address] Encounter for counseling regarding contraception Social History Tobacco Use Types Packs/Day Years [...] Answer Date Recorded Patient Health Questionnaire-9 Score 15 03/07/2024 Patient Health Questionnaire-9 Score 15 03/07/2024 Last PHQ-9: Questionnaire Data Not on file 0 03/07/2024 Housing Stability Answer Date Recorded What is [...] Date Recorded Patient Health Questionnaire-2 Score 3 03/07/2024 Comments No Sex and Gender Information Value Date Recorded Sex Assigned at Female 08/07/2022 10:19 AM EDT Legal Sex Female 10:19 AM EDT Gender Identity Female 08/07/2022 10:19 AM EDT Sexual Orientation Straight 06/20/2023 12 :44 PM EDT documented as of this encounter Miscellaneous Notes * Telephone Encounter - Anayeli Mclaughlin NP - 03/27/2024 2:11 PM EDT Patient is not taking medication at this time * Telephone Encounter - Anayeli Mclaughlin NP - 03/27/2024 2:10 PM EDT Thank you documented in this encounter Plan of Treatment Upcoming Encounters Date Type Department Care Team (Late st Contact Info) Description 07/10/2025 3:30 PM EDT Telemedicine [facility] MEDICINE [address] [place] [address] Anayeli Mclaughlin NP [address] [place] [address] 09/17/2025 1:00 PM EST Clinical Support [facility] MEDICINE [address] [place] [address] 09/22/2025 10:30 AM EST Office Visit [facility] OPTOMETRY [address] [place] [address] TarkaFunmilayo, OD [address] [place] [address] documented as of this encounter Visit Diagnoses Diagnosis Encounter for counseling regarding contraception documented in this encounter Additional Health Concerns Assessment Noted Time PHQ-9 Depression Total Score: 15 024 9:21 AM EDT documented as of this encounter Care Teams Commercial Accountant Relationship Specialty Start Date End Date Anayeli Mclaughlin NP [address] [place] [address] PCP - General Family Medicine 09/13/23 documented as of this encounter
--- OUTSIDE RECORDS SUMMARY | 2025-07-02 19:56 | XMS_ITS | Encounter Summary ---
Author Organization [employer] Address 75 [facility] 7 [place] [address] Care Team Providers Care Superintendent Of Generation Name Role Phone Anayeli Mclaughlin NP Primary Care Provider [phone] Reason for Visit * Reason Comments Med Refill Encounter Details Date Type Department Care Team ([facility] st Contact Info) Description 06/30/2025 Refill [facility] [address] [place] [address] Anayeli Mclaughlin NP 230 [place] [address] Social History Tobacco Use Types Packs/Day Years [...] Info) Description 07/10/2025 3:30 PM EDT Telemedicine [facility] [address] [place] [address] Anayeli Mclaughlin NP [address] [place] [address] 09/17/2025 1:00 PM EST Clinical Support [facility] [address] [place] [address] 09/22/2025 10:30 AM EST Office Visit [facility] [address] [place] [address] TarFunmilayo chávez, OD [address] [place] [address] documented as of this encounter Visit Diagnoses Not on filedocumented in this encounter Additional Health Concerns Assessment Noted Time PHQ-9 Depression Total Score: 9 05/18/20 25 2:51 PM EDT documented as of this encounter Care Teams Superintendent Of Generation Relationship Specialty Start Date End Date Anayeli Mclaughlin NP [address] [place] [address] PCP - General Family Medicine 09/13/23 documented as of this encounter
--- OUTSIDE RECORDS SUMMARY | 2025-07-02 19:56 | XMS_ITS | Encounter Summary ---
Author Organization [employer] Address 75 [facility] 7 [place] [address] Care Team Providers Care Jig Box Operator Name Role Phone Anayeli Mclaughlin NP Primary Care Provider [phone] Reason for Visit * Reason Comments Med Refill Encounter Details Date Type Department Care Team ([facility] st Contact Info) Description 03/03/[address] [facility] PEDIATRICS [address] [place] [address] Rahel Crain MD 230 [place] [address] Social History Tobacco Use Types Packs/Day Years [...] Telephone Encounter - Anayeli Mclaughlin NP - 03/04/2024 2:29 PM EDT Patient has expressed not wanting to continue contraception using depo injection and was switched to an oral pill in January after shared decision making. documented in this encounter Plan of Treatment Upcoming Encounters Date Type Department Care Team (Late st Contact Info) Description 07/10/2025 3:30 PM EDT Telemedicine [facility] MEDICINE [address] [place] [address] Anayeli Mclaughlin NP [address] [place] [address] 09/17/2025 1:00 PM EST Clinical Support [facility] MEDICINE [address] [place] [address] 09/22/2025 10:30 AM EST Office Visit [facility] OPTOMETRY [address] [place] [address] Funmilayo Umana, OD [address] [place] [address] documented as of this encounter Visit Diagnoses Not on filedocumented in this encounter Additional Health Concerns Assessment Noted Time PHQ-9 Depression Total Score: 15 024 10:14 AM EDT documented as of this encounter Care Teams Jig Box Operator Relationship Specialty Start Date End Date Anayeli Mclaughlin NP [address] [place] [address] PCP - General Family Medicine 09/13/23 documented as of this encounter
--- OUTSIDE RECORDS SUMMARY | 2025-07-02 19:56 | XMS_ITS | Encounter Summary ---
Author Organization [employer] Address 75 [facility] 7 [place] [address] Care Team Providers Care Level Vial Marker Name Role Phone Anayeli Mclaughlin NP Primary Care Provider [phone] Reason for Visit * Reason Onset Date Comments Results 10/22/2024 Encounter Details Date Type Department Care Team ([facility] st Contact Info) Description 10/22/2024 Telephone [facility] MEDICINE [address] [place] [address] Anayeli Mclaughlin NP [address] [place] [address] Results Social History Tobacco Use Types Packs/Day Years [...] encounter Miscellaneous Notes * Telephone Encounter - Sissy Cr - 10/22/2024 3:53 PM EST TC from pt requesting call back regarding Results. Type of results: Urinalysis Date when done: 10/22 Facility: [facility] documented in this encounter Plan of Treatment Upcoming Encounters Date Type Department Care Team (Late st Contact Info) Description 07/10/2025 3:30 PM EDT Telemedicine [facility] MEDICINE [address] [place] [address] Anayeli Mclaughlin NP [address] [place] [address] 09/17/2025 1:00 PM EST Clinical Support [facility] MEDICINE [address] [place] [address] 09/22/2025 10:30 AM EST Office Visit [facility] OPTOMETRY [address] [place] [address] Funmilayo Umana, OD [address] [place] [address] documented as of this encounter Visit Diagnoses Not on filedocumented in this encounter Additional Health Concerns Assessment Noted Time PHQ-9 Depression Total Score: 11 024 9:42 AM EDT documented as of this encounter Care Teams Level Vial Marker Relationship Specialty Start Date End Date Anayeli Mclaughlin NP [address] [place] [address] PCP - General Family Medicine 09/13/23 documented as of this encounter
--- OUTSIDE RECORDS SUMMARY | 2025-07-02 19:56 | XMS_ITS | Encounter Summary ---
Author Organization [employer] Address 75 [facility] 7 [place] [address] Care Team Providers Care Cider Press Operator Name Role Phone Mikkiroshni Anayeli DUNG Primary Care Provider [phone] Encounter Details Date Type Department Care Team (Latest Contact Info) Description 07/02/2025 Travel Social History Tobacco Use Types Packs/Day Years [...] Info) Description 07/10/2025 3:30 PM EDT Telemedicine [facility] MEDICINE [address] [place] [address] Anayeli Mclaughlin NP 230 [place] [address] 09/17/2025 1:00 PM EST Clinical Support [facility] MEDICINE [address] [place] [address] 09/22/2025 10:30 AM EST Office Visit [facility] OPTOMETRY [address] [place] [address] Tarka, Funmilayo, OD [address] [place] [address] documented as of this encounter Visit Diagnoses Not on filedocumented in this encounter Additional Health Concerns Assessment Noted Time PHQ-9 Depression Total Score: 9 05/18/20 25 2:51 PM EDT documented as of this encounter Care Teams Cider Press Operator Relationship Specialty Start Date End Date Anayeli Mclaughlin NP [address] [place] [address] PCP - General Family Medicine 09/13/23 documented as of this encounter
== END 2025-07-02 16:29 | disposition home or self-care (01) ==
LOC: HO.HHCLNP 16:28
PROVIDERS: Visit Provider Internal Medicine
DX: Z30.09 Encounter for other general counseling and advice on contraception (principal)
CPT/HCPCS: 81515; 87491; 87591

== ENCOUNTER 2025-10-05 21:24 | Emergency (ER) | payer MEDICAID, SELFPAY ==
--- NOTE | 2025-10-05 | ECG_ITS ---
Test Reason : TACHYCARDIA Blood Pressure : */* mmHG Vent. Rate : 135 BPM Atrial Rate : 135 BPM P-R Int : 122 ms QRS Dur : 70 ms QT Int : 294 ms P-R-T Axes : 75 74 22 degrees QTcB Int : 441 ms Sinus tachycardia Otherwise normal ECG When compared with ECG of 04-Oct-2018 16:37, No significant changes seen Referred By: Generic ED Physician Electronically Signed By: STEWART HACKETT
--- NOTE | ~2025-10-05 | XR_ITS ---
CLINICAL HISTORY: constipation 1 view abdomen Comparison: None provided Findings: Bowel-gas pattern is nonobstructive. There is minimal gas within the colon. There may be minimal stool in the right hemicolon. The remainder of the colon appears to be decompressed. No calcifications are seen within the regions of the kidneys or ureters. Impression: Nonobstructive bowel-gas pattern. This document has been electronically signed by: Omer Cabrera MD on 10/06/2025 02:19:16
[2025-10-05 21:32] VITALS: BP 141/81; PULSE 126; RESP 20; TEMP 36.7; O2SAT 99; BMI 27.8
[2025-10-05 21:59] LABS: Hematocrit 40.2 % (37.0-47.0); Hemoglobin 14.4 g/dl (12.0-16.0); Imm Gran Abs Auto 0.02 X10*3/uL (0.00-0.03); Imm Gran Pct Auto 0.2 % (0.0-0.4); Lymphocytes Absolute Auto 2.3 X10*3/uL (1.2-4.9); MANUAL DIFF FLAG NO; Mean Corpuscular HGB Conc 35.8 g/dl (31.0-35.0); Mean Corpuscular Hemoglobin 30.4 pg (27.0-33.0); Mean Corpuscular Volume 84.8 fL (80.0-98.0); NRBC Abs Auto 0.000 X10*3/uL (0.0-0.012); NRBC Pct Auto 0.0 /100WBC (0.0-0.2); Platelet Count 335 X10*3/uL (160-400); Red Blood Count 4.74 X10*6/uL (4.20-5.50); White Blood Count 8.2 X10*3/uL (4.8-10.8)
[2025-10-05 22:18] LABS: Alanine Aminotransferase 12 U/L (0-31); Albumin Level 5.2 g/dL (3.5-5.0); Alkaline Phosphatase 73 U/L (39-117); Anion Gap 19 (12-20); Aspartate Amino Transferase 31 U/L (5-31); Blood Urea Nitrogen 8 mg/dL (9-16); Calcium 10.0 mg/dL (8.4-10.2); Carbon Dioxide 17 mmol/L (22-29); Chloride 110 mmol/L (96-108); Creatinine Clr Calc Pharmacy 107.9; Estimated Glomerular Filt Rate > 60; Potassium 4.0 mmol/L (3.3-5.1); Sodium 142 mmol/L (135-145); Total Protein 8.7 g/dL (6.5-8.0)
--- OUTSIDE RECORDS SUMMARY | 2025-10-06 00:05 | XMS_ITS | Clinical Summary ---
Author Organization [facility] Address [address] [place] [address] Phone Care Team Providers Care Wire Weaving Loom Setter Name Role Phone Unavailable Primary Care Provider [...] Vaccine (1 of 2 - Standard) 2020 Meningococcal Vaccine (1 - 2-dose series) 2020 Influenza Vaccines (#1) 2025 COVID-19 Vaccine (2024- season) 2025 Hepatitis B Vaccines Completed 04/03/2005, 2004, 2004 MMR Vaccines Completed 10/10/2005 HIB Vaccines Completed 03/26/2006, 01/07, 2004 Pneumococcal Vaccine Completed 03/26/2006, 04/03/2005, 01/30/2005, Additional history exists Hepatitis A Vaccines Aged Out No long er eligible based on patient's age to complete this topic
--- OUTSIDE RECORDS SUMMARY | 2025-10-06 00:05 | XMS_ITS | Encounter Summary ---
Author Organization [employer] Address 75 [facility] 7 [place] [address] Care Team Providers Care Telegrapher Agent Name Role Phone Anayeli Mclaughlin NP Primary Care Provider Reason for Visit * Reason Onset Date Comments Referral 10/05/2025 Encounter Details Date Type Department Care Team ([facility] st Contact Info) Description 10/05/2025 Telephone [facility] MEDICINE [address] [place] [address] Anayeli Mclaughlin NP [address] [place] [address] Referral Social History Tobacco Use Types Packs/Day Years [...] encounter Miscellaneous Notes * Telephone Encounter - Terell Leach - 10/05/2025 3:10 PM EST Tc from pt requesting a referral for a fire hydrant mechanic (Pt was told that the referrals would be send after the year ended. And would be send at the beginning of the year.) Pt would like the referral sooner to get check Contact pt at [phone] documented in this encounter Plan of Treatment Upcoming Encounters Date Type Department Care Team (Late st Contact Info) Description 10/23/2025 11:00 AM EST Office Visit [facility] MEDICINE [address] [place] [address] Anayeli Mclaughlin NP [address] [place] [address] 12/03/2025 1:00 PM EST Clinical Support [address] [phone] 01/12/2026 3:00 PM EDT Office Visit [facility] OPTOMETRY [address] [place], [place] [phone] Funmilayo Umana, OD [address] [place] [address] documented as of this encounter Visit Diagnoses Not on filedocumented in this encounter Additional Health Concerns Assessment Noted Time PHQ-9 Depression Total Score: 9 05/18/20 25 2:51 PM EDT documented as of this encounter Care Teams Telegrapher Agent Relationship Specialty Start Date End Date Anayeli Mclaughlin NP [address] [place] [address] PCP - General Family Medicine 09/13/23 documented as of this encounter
--- OUTSIDE RECORDS SUMMARY | 2025-10-06 00:05 | XMS_ITS | Clinical Summary ---
Author Organization [employer] Address [address] [place] [address] 7 [place] [address] Care Team Providers Care Contract Administration Manager Name Role Phone Anayeli Mclaughlin NP Primary Care Provider [phone] Allergies No known active allergies Medications * [...] BY MOUTH EVERY DAY 90 tablet 3 Active hydrOXYzine HCl (Atarax) 25 MG tabletIndicatio ns:Mixed anxiety and depressive disorder TAKE 1-2 TAB BY MOUTH AT BEDTIME AND 1 TAB NEEDED FOR ANXIETY NO MORE THAN 4 TAB/ DAY. 60 tablet Active cholecalciferol (Vitamin D-3) 25 MCG (1000 UT) tabletIndicatio ns:Hypovitamino sis D Take 1 tablet (25 mcg) by mouth Once per day. 90 tablet 1 025 2025 Active medroxyPROGESTE Jama (Depo-Provera) 150 MG/ML injection TAKE TO DOCTOR'S OFFICE FOR ADMINISTRATION EVERY 3 MONTHS 1 mL 3 Active psyllium (Metamucil) 0.36 g capsuleIndicati ons:Constipatio n, unspecified constipation type Take 6 capsules (2.16 g) by mouth Once per day. 180 capsule 3 025 2025 Active senna-docusate sodium (Senokot-S) 8.6-50 MG tabletIndicatio ns:Constipation , unspecified constipation type Take 1 tablet by mouth Once per day. 90 tablet 3 025 2025 Active escitalopram (Lexapro) 20 MG tabletIndicatio ns:Anxiety and depression Take 1 tablet (20 mg) by mouth Once per day. 30 tablet 2 025 2025 Active escitalopram (Lexapro) 10 MG tabletIndicatio ns:Anxiety and depression Take 1 tablet (10 mg) by mouth Once per day. 30 tablet 2 025 2024 Discontinued(R eorder (will not trigger notification to Pharmacy)) meclizine (Antivert) 25 MG tabletIndicatio ns:Dizziness Take 1 tablet (25 mg) by mouth if needed in the morning, at noon, and at bedtime for dizziness for up to 10 days. 30 tablet 025 2024 sodium phosphate (Fleet) 7-19 GM/118ML enemaIndication s:Constipation, unspecified constipation type Insert 1 enema into the rectum 1 (one) time for 1 dose. 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 Assessment & Plan (07/12/2025 10:07 PM EDT): -increase lexapro to 10 mg daily -discussed benefits of engaging in gentle yoga practices, meditation, deep breathing and journaling along with physical activity to aid in symptom improvement -continue engaging with therapist -will place referral for psychiatrist as requested -ED precautions discussed Orders: escitalopram (Lexapro) 10 MG tablet; Take 1 tablet (10 mg) by mouth Once per day. Referral to Psychiatry; Future Assessment & Plan (06/02/2025 4:58 AM EDT): [...] continue prescribing medication. At this time Florencia Gee Cowan meets criteria for Visit Diagnoses: Problem List Items Addressed This Visit Other Adjustment disorder with mixed anxiety and depressed mood Patient ready to address current needs Yes Strengths include supportive family. Patient is in the Preparation stage. PLAN: 1. Follow up with [facility]: Not recommended for follow-up 2. Patient goal is to be connected with a therapist to decrease symptoms. 3. Behavioral Recommendations a. Utilize coping skills provided b. Comply with medication c. Engage in therapy once established d. Reach out to [facility] for additional support. Oppositional defiant disorder 04/06/2023 [...] Encounters Date Type Department Care Team Description 10/05/2025 Telephone [facility] MEDICINE [address] [place] [address] Anayeli Mclaughlin NP Referral 09/21/2025 3:15 PM EST Office Visit [facility] MEDICINE [address] [place] [address] Anayeli Mclaughlin NP Constipation, unspecified constipation type (Primary Dx); Anxiety and depression; Dizziness 09/21/2025 Travel 09/18/2025 Telephone [facility] [address] [place] [address] Anayeli Mclaughlin NP CHARTPREP 09/17/2025 1:00 PM EST Clinical Support [facility] [place] [address] Sarah Phillips, CARON Encounter for Depo-Provera contraception 09/17/2025 Telephone [facility] [place] [address] Sarah Phillips RN 09/17/2025 Travel 07/10/2025 3:30 PM EDT Telemedicine [facility] [place] [address] Anayeli Mclaughlin NP Anxiety and depression (Primary Dx); Constipation, unspecified constipation type 07/10/2025 Travel 07/09/2025 Telephone [facility] [place] [address] Anayeli Mclaughlin NP CHARTPREP from Last 3 Months Immunizations Immunization Administration [...] Sign Reading Time Taken Comments Blood Pressure 118/70 09/21/2025 3:33 PM EST Pulse 88 09/21/2025 3:33 PM EST Temperature 36.6 C (97.8 F) 09/21/2025 3:33 PM EST Respiratory Rate 18 09/21/2025 3:33 PM EST Oxygen Saturation 97% 09/21/2025 3:33 PM EST Inhaled Oxygen Concentration - - Weight 71.3 kg (157 lb 3.2 oz) 09/21/2025 3:33 P M EST Height 160 cm (5' 3 ) 09/21/2025 3:33 PM EST Body Mass Index 27.85 09/21/2025 3:33 PM EST Plan of Treatment Upcoming Encounters Date Type Department Care Team (Late st Contact Info) Description 10/23/2025 11:00 AM EST Office Visit [facility] MEDICINE [address] [place] [address] Anayeli Mclaughlin NP [address] [place] [address] 12/03/2025 1:00 PM EST Clinical Support [facility] MEDICINE [address] [place] [address] 01/12/2026 3:00 PM EDT Office Visit [facility] OPTOMETRY [address] [place] [address] Funmilayo Umana, OD [address] [place] [address] Health Maintenance Due Date Last Done Comments Family Planning (PISQ) 2019 Meningococcal B Vaccine (1 of 2 - Standard) 2020 COVID-19 Vaccine ( - season) 2025 07/07/2021, 06/16/2021 Influenza Vaccine (#1) 2025 , 11/08/2017, 06/03/2012, Additional history exists Pap Smear 2025 Depression Monitoring 11/18/2025 05/18/2025, 025 Alcohol/Substance Use Screening 05/18/2026 05/18/2025 Disability Screening 05/18/2026 05/18/2025 SDOH Screening 05/18/2026 05/18/2025 Chlamydia and Gonorrhea Screening 07/02/2026 07/02/2025, 12/16/2024, 12/16/2024, Additional history exists Tobacco Screening 09/21/2026 09/21/2025 DTaP/Tdap/Td Vaccines (6 - Td or Tdap) [...] Name Priority Date/Time Associated Diagnosis Comments POCT , URINE Routine 09/17/2025 1:38 PM EST Encounter for Depo-Provera contraception CHLAMYDIA/N. GONORRHOEAE RNA, TMA, UROGENITAL Routine 07/02/2025 1:56 PM EDT Encounter for counseling regarding contraception HEPATITIS C AB W/REFL TO HCV RNA, QN, PCR Routine 01/30/2024 11:22 AM EDT Routine screening for STI (sexually transmitted infection) HIV 1/2 ANTIGEN/ANTIBODY, FOURTH GENERATION W/RFL Routine 01/30/2024 11:22 AM EDT Routine screening for STI (sexually transmitted infection) from Last 3 Months or Most Recently Relevant to Health Maintenance Results * POCT Urine (09/17/2025 1:38 PM EST) Preg Test, Ur Negative Negative, Indeterminate, None Detected, Trace, 3+, Specimen unsatisfactory for evaluation, Weakly Positive, 1+, 2+ QC Media Lot # [id number] Lot# Expiration Date Urine 09/17/2025 1:38 PM EST [facility] ANIMAL PHYSIOLOGY TEACHER POINT OF CARE TEST ENTER/EDIT O RDERABLES Final Result * Chlamydia/N. Gonorrhoeae RNA, TMA, Urogenitial (07/02/2025 1:56 PM EDT) CT PCR NOT DETECTED Not Detect. [facility] Comment:A not detected test result does [...] psychologicalconsequences. NG PCR NOT DETECTED Not Detect. [facility] Comment:A not detected test result does [...] MICROBIOLOGY - GENERAL OR DERABLES Final Result Performing Organization Address [facility] Co de Phone Number [facility] [address] [place] [phone] * Hepatitis C Antibody with Reflex to HCV, RNA, Quantitative, Real-Time PCR (01/30/2024 11:22 AM EDT) Hepatitis C Antibody Nonreactive Nonreactive [facility] Comment:Antibodies to HCV no t detected; does not exclude early acuteHCV infection. Blood Venous blood specimen / Unknown 01/30/2024 11:22 AM EDT 01/30/2024 1:28 PM EDT Anayeli Mclaughlin NP LAB BLOOD ORDERABLES Final Resu lt Performing Organization Address [facility] Co de Phone Number [facility] [address] [place] [phone] * HIV-1/2 Antigen and Antibodies, Fourth Generation, with Reflexes (01/30/2024 11:22 AM EDT) HIV AB/AG Nonreactive Nonreactive [facility] Comment:HIV-1 p24 Ag and/or HIV-1/HIV-2 Ab not detected.A test result that is nonreactive does not exclude thepossibility of exposure to or infection with HIV-1 and/orHIV-2. Nonreactive results in this assay for individualswith prior exposure to HIV-1 and/or HIV-2 may be due toantigen and antibody levels that are below the limit ofdetection of this assay.The [employer] Alinity HIV Ag/Ab Combo assay result andsupplemental assay results should be interpreted inconjunction with the patient's clinical presentation,history and other laboratory results. If the results areinconsistent with clinical evidence, additional testing issuggested to confirm the result. Blood Venous blood specimen / Unknown 01/30/2024 11:22 AM EDT 01/30/2024 1:28 PM EDT us Anayeli Mclaughlin NP LAB BLOOD ORDERABLES Final Resu lt [facility] [address] [place] [phone] [phone] from Last 3 Months or Most Recently Relevant to Health Maintenance [place] [address] [place] [address] C3 Care Teams Contract Administration Manager Relationship Specialty Start Date End Date Anayeli Mclaughlin NP [address] [place] [address] PCP - General Family Medicine 09/13/23
--- OUTSIDE RECORDS SUMMARY | 2025-10-06 00:05 | XMS_ITS | Encounter Summary ---
Author Organization [employer] Address [address] [facility] 7 [place] [address] Care Team Providers Care Manager Quality Systems Name Role Phone Anayeli Mclaughlin NP Primary Care Provider [phone] Reason for Visit * Reason Onset Date Comments Med Refill 11/26/2024 Encounter Details Date Type Department Care Team ([facility] st Contact Info) Description 11/26/2024 Telephone [facility] MEDICINE [address] [place], [place] [phone] Anayeli Mclaughlin NP [address] [place], [place] [phone] Med Refill Social History Tobacco Use Types [...] Description 10/23/2025 11:00 AM EST Office Visit [facility] MEDICINE [address] [place] [address] Anayeli Mclaughlin NP [address] [place] [address] 12/03/2025 1:00 PM EST Clinical Support [facility] MEDICINE [address] [place] [address] 01/12/2026 3:00 PM EDT Office Visit [facility] OPTOMETRY [address] [place] [address] Funmilayo Umana OD [address] [place] [address] documented as of this encounter Visit Diagnoses Diagnosis Anxiety and depression documented in this encounter Additional Health Concerns Assessment Noted Time PHQ-9 Depression Total Score: 11 024 9:42 AM EDT documented as of this encounter Care Teams Manager Quality Systems Relationship Specialty Start Date End Date Anayeli Mclaughlin NP [address] [place] [address] PCP - General Family Medicine 09/13/23 documented as of this encounter
--- OUTSIDE RECORDS SUMMARY | 2025-10-06 00:05 | XMS_ITS | Encounter Summary ---
Author Organization [employer] Address [address] [facility] 7 [place] [address] Care Team Providers Care Photogrammetric Technician Name Role Phone Anayeli Mclaughlin NP Primary Care Provider [phone] Reason for Visit * Reason Comments Med Refill Encounter Details Date Type Department Care Team ([facility] st Contact Info) Description 03/24/2024 Refill [facility] MEDICINE [address] [place] [address] Anayeli Mclaughlin NP 230 [place] [address] Encounter for counseling regarding contraception Social History [...] the past 12 months, has t he [employer], gas, oil or water [employer] threatened to shut off services in your [...] Description 10/23/2025 11:00 AM EST Office Visit [facility] MEDICINE [address] [place] [address] Anayeli Mclaughlin NP [address] [place] [address] 12/03/2025 1:00 PM EST Clinical Support [facility] MEDICINE [address] [place] [address] 01/12/2026 3:00 PM EDT Office Visit [facility] OPTOMETRY [address] [place] [address] Nuriakyler Funmilayo, OD [address] [place] [address] documented as of this encounter Visit Diagnoses Diagnosis Encounter for counseling regarding contraception documented in this encounter Additional Health Concerns Assessment Noted Time PHQ-9 Depression Total Score: 15 024 9:21 AM EDT documented as of this encounter Care Teams Photogrammetric Technician Relationship Specialty Start Date End Date Anayeli Mclaughlin NP [address] [place] [address] PCP - General Family Medicine 09/13/23 documented as of this encounter
--- OUTSIDE RECORDS SUMMARY | 2025-10-06 00:05 | XMS_ITS | Encounter Summary ---
Author Organization [employer] Address [address] [facility] 7 [place] [address] Care Team Providers Care Country Manager Name Role Phone Anayeli Mclaughlin NP Primary Care Provider Reason for Visit * Reason Onset Date Comments Results 10/22/2024 Encounter Details Date Type Department Care Team ([facility] st Contact Info) Description 10/22/2024 Telephone [facility] MEDICINE [address] [place] [address] Anayeli Mclaughlin NP 230 [place] [address] Results Social History Tobacco Use Types Packs/Day [...] the past 12 months, has t he [employer], gas, oil or water company threatened to [...] results: Urinalysis Date when done: 10/22 Facility: [facility] documented in this encounter Plan of Treatment Upcoming Encounters Date Type Department Care Team (Late st Contact Info) Description 10/23/2025 11:00 AM EST Office Visit [facility] MEDICINE [address] [place] [address] Anayeli Mclaughlin NP 230 [place] [address] 12/03/2025 1:00 PM EST Clinical Support [facility] MEDICINE [address] [place] [address] 01/12/2026 3:00 PM EDT Office Visit [facility] OPTOMETRY [address] [place] [address] Funmilayo Umana, OD [address] [place] [address] documented as of this encounter Visit Diagnoses Not on filedocumented in this encounter Additional Health Concerns Assessment Noted Time PHQ-9 Depression Total Score: 11 04/02/ 024 9:42 AM EDT documented as of this encounter Care Teams Country Manager Relationship Specialty Start Date End Date Anayeli Mclaughlin NP [address] [place] [address] PCP - General Family Medicine 09/13/23 documented as of this encounter
--- OUTSIDE RECORDS SUMMARY | 2025-10-06 00:05 | XMS_ITS | Encounter Summary ---
Author Organization [employer] Address [address] [place] [address] 7t [place] [address] Care Team Providers Care Regional Account Director Name Role Phone MikkiroshniAnayeli NP Primary Care Provider Encounter Details Date Type Department Care Team ([facility] st Contact Info) Description 09/13/2023 Orders Only [facility] PEDIATRICS [address] [place] [address] Rahel Crain MD 230 [place] [address] Social History Tobacco Use Types Packs/Day Years [...] Description 10/23/2025 11:00 AM EST Office Visit [facility] MEDICINE [address] [place] [address] Anayeli Mclaughlin NP 230 [place] [address] 12/03/2025 1:00 PM EST Clinical Support [facility] MEDICINE [address] [place] [address] 01/12/2026 3:00 PM EDT Office Visit [facility] OPTOMETRY [address] [place] [address] Funmilayo Umana, OD [address] [place] [address] documented as of this encounter Visit Diagnoses Not on filedocumented in this encounter Additional Health Concerns Assessment Noted Time PHQ-9 Depression Total Score: 11 023 9:20 AM EDT documented as of this encounter Care Teams Regional Account Director Relationship Specialty Start Date End Date Anayeli Mclaughlin NP [address] [place] [address] PCP - General Family Medicine 09/13/23 documented as of this encounter
--- OUTSIDE RECORDS SUMMARY | 2025-10-06 00:05 | XMS_ITS | Encounter Summary ---
Author Organization [facility] Address [address] [place] [address] Phone Care Team Providers Care Flyer Maker Name Role Phone Unavailable Primary Care Provider Unavailabl e Encounter Details Date Type Department Care Team (Late st Contact Info) Description 05/24/2017 Conversion Encounter [facility] - [address] [address] Social History Tobacco Use Types Packs/Day Years [...]
--- OUTSIDE RECORDS SUMMARY | 2025-10-06 00:05 | XMS_ITS | Encounter Summary ---
Author Organization [employer] Address [address] [facility] 7 [place] [address] Care Team Providers Care Ball Assembler Name Role Phone Mikkiroshni Anayeli RAZO Primary Care Provider [phone] Reason for Visit * Reason Comments Med Refill Encounter Details Date Type Department Care Team ([facility] st Contact Info) Description 03/03/2024 Refill [facility] PEDIATRICS [address] [place] [address] Rahel Crain MD 230 [place], [place] [phone] Social History Tobacco Use Types Packs/Day Years [...] the past 12 months, has t he [employer], gas, oil or water company threatened to [...] Description 10/23/2025 11:00 AM EST Office Visit [facility] MEDICINE [address] [place] [address] Anayeli Mclaughlin NP [address] [place] [address] 12/03/2025 1:00 PM EST Clinical Support [facility] MEDICINE [address] [place] [address] 01/12/2026 3:00 PM EDT Office Visit [facility] OPTOMETRY [address] [place] [address] Funmilayo Umana OD [address] [place] [address] documented as of this encounter Visit Diagnoses Not on filedocumented in this encounter Additional Health Concerns Assessment Noted Time PHQ-9 Depression Total Score: 15 024 10:14 AM EDT documented as of this encounter Care Teams Ball Assembler Relationship Specialty Start Date End Date Anayeli Mclaughlin NP [address] [place] [address] PCP - General Family Medicine 09/13/23 documented as of this encounter
--- OUTSIDE RECORDS SUMMARY | 2025-10-06 00:05 | XMS_ITS | Encounter Summary ---
Author Organization [employer] Address [address] [facility] 7t [place] [address] Care Team Providers Care District Home Economics Agent Name Role Phone Rahel Crain MD Primary Care Provider [phone] Anayeli Mclaughlin NP Primary Care Provider [phone] Reason for Visit * Reason Comments Med Refill Encounter Details Date Type Department Care Team (Late st Contact Info) Description 05/09/2023 Refill [facility] PEDIATRICS [address] [place], [place] [phone] Rahel Crain MD 230 [place] [address] Mixed anxiety and depressive disorder; Gastroesophageal reflux [...] Recorded In the last 10 days, have anna u been in contact with someone who was confirmed or suspected to have Coronavirus/COVID-19? No / Unsure 04/11/2023 2:20 PM EDT documented as of this encounter Plan of Treatment Upcoming Encounters Date Type Department Care Team ([facility] st Contact Info) Description 10/23/2025 11:00 AM EST Office Visit [facility] MEDICINE [address] [place] [address] Anayeli Mclaughlin NP 230 [place] [address] 12/03/2025 1:00 PM EST Clinical Support [facility] MEDICINE [address] [place] [address] 01/12/2026 3:00 PM EDT Office Visit [facility] OPTOMETRY [address] [place] [address] Funmilayo Umana OD [address] [place] [address] documented as of this encounter Visit Diagnoses Diagnosis Mixed anxiety and depressive disorder Dysthymic disorder Gastroesophageal reflux disease without esophagitis Esophageal reflux documented in this encounter Additional Health Concerns Assessment Noted Time PHQ-9 Depression Total Score: 9 04/06/20 9:51 AM EDT documented as of this encounter Care Teams District Home Economics Agent Relationship Specialty Start Date End Date Rahel Crain MD [address] [place] [address] PCP - General Pediatrics 06/06/18 09/12/23 Anayeli Mclaughlin NP [address] [place] [address] PCP - General Family Medicine 09/13/23 documented as of this encounter
--- OUTSIDE RECORDS SUMMARY | 2025-10-06 00:05 | XMS_ITS | Encounter Summary ---
Author Organization [employer] Address [address] [place] [address] 7t [place] [address] Care Team Providers Care Coding Quality Analyst Name Role Phone Rahel Crain MD Primary Care Provider Anayeli Mclaughlin NP Primary Care Provider [phone] Encounter Details Date Type Department Care Team (Late st Contact Info) Description 01/08/2023 Orders Only [facility] MED & PEDS [address] [place] [address] Traci Huff LPN Social History Tobacco Use [...] Department Care Team (Late Contact Info) Description 10/23/2025 11:00 AM EST Office Visit [address] [address] Anayeli Mclaughlin NP [address] [place] [address] 12/03/2025 1:00 PM EST Clinical Support [facility] MEDICINE [address] [place], [place] [phone] 01/12/2026 3:00 PM EDT Office Visit [facility] OPTOMETRY [address] [place], [place] [phone] Funmilayo Umana, OD [address] [place], [place] [phone] documented as of this encounter Visit Diagnoses Not on filedocumented in this encounter Care Teams Coding Quality Analyst Relationship Specialty Start Date End Date Rahel Crain MD [address] [place] [address] PCP - General Pediatrics 06/06/18 09/12/23 Anayeli Mclaughlin NP 230 [place] [address] PCP - General Family Medicine 09/13/23 documented as of this encounter
--- OUTSIDE RECORDS SUMMARY | 2025-10-06 00:05 | XMS_ITS | Encounter Summary ---
Author Organization [employer] Address [address] [place] [address] 7 [place] [address] Care Team Providers Care Apricot Packer Name Role Phone Anayeli Mclaughlin DUNG Primary Care Provider Reason for Visit * Reason Onset Date Comments Med Refill 10/25/2023 Encounter Details Date Type Department Care Team (Late st Contact Info) Description 10/25/2023 Refill [facility] PEDIATRICS [address] [place] [address] Rahel Crain MD [address] [place] [address] Mixed anxiety and depressive disorder; Difficulty sleeping; [...] Description 10/23/2025 11:00 AM EST Office Visit [facility] MEDICINE [address] [place] [address] Anayeli Mclaughlin NP [address] [place] [address] 12/03/2025 1:00 PM EST Clinical Support [facility] MEDICINE [address] [place] [address] 01/12/2026 3:00 PM EDT Office Visit [facility] OPTOMETRY [address] [place] [address] Tarka, Funmilayo, OD [address] [place] [address] documented as of this encounter Visit Diagnoses Diagnosis Mixed anxiety and depressive disorder Dysthymic disorder Difficulty sleeping Unspecified sleep disturbance Other fatigue Lumbar spine pain documented in this encounter Additional Health Concerns Assessment Noted Time PHQ-9 Depression Total Score: 11 023 9:20 AM EDT documented as of this encounter Care Teams Apricot Packer Relationship Specialty Start Date End Date Anayeli Mclaughlin NP [address] [place] [address] PCP - General Family Medicine 09/13/23 documented as of this encounter
--- NOTE | 2025-10-06 00:51 | ED_ITS ---
HPI - General Adult General Chief complaint: Anxiety Stated complaint: nausea, tingling fingers, constipation, rt side pa Time Seen by Provider: 10/06/25 00:05 Source: patient Limitations: no limitations History of Present Illness ED Provider: Mary Willis PA-C HPI narrative: 20-year-old female with a history of anxiety and depression, a presents with anxiety. Patient states she is constipated, she has developed abdominal cramping and nausea, it is making her anxious. She states they recently increased her dose of Lexapro, she took her 1st escalated dose today, it is not helping. Denies distention, active vomiting, fever or inability to pass flatus. Related Data Previous Rx's ?Medication ?Instructions ?Recorded ibuprofen 600 mg tablet 600 mg PO TID PRN pain #20 t abs 08/16/22 Allergies Allergy/AdvReac Type Severity Reaction Status Date / Time No Known Allergies Allergy Verified 10/05/25 21:34 Review of Systems 2 Review of Systems: Yes all other systems are reviewed and are negative Constitutional: Constitutional: Denies fatigue and Denies fever(s) Cardiovascular: Cardiovascular: Denies chest pain and Denies dyspnea Respiratory: Respiratory: Denies dyspnea Gastrointestinal: Gastrointestinal: Reports abdominal pain, Reports GI cramping, Reports nausea and Denies vomiting Endocrine: Endocrine: Denies fatigue PMFSH Past Medical History Attestation statement: The following information was validated with the patient. Medical History (Updated 10/06/25 @ 20:57 by SARAY Lozano) MDD (major depressive disorder) Social History Social History (System 01/31/24 @ 11:12 by Pilar Martínez) Advance Directives: No Advance Directives Information Provided: Yes Physical Exam ED Vital Signs: Vital Signs - 24 hr 10/05/25 21:32 Temperature 98.1 F Pulse Rate 126 H Respiratory Rate 20 Blood Pressure 141/81 H Pulse Oximetry 99 Oxygen Delivery Method Room Air BMI result Body Mass Index 27.8 Const Other: Alert Orientation/consciousness: patient oriented x3 Resp Effort & Inspection: normal respiratory effort Cardio Other: Normal peripheral perfusion GI Other: Soft nondistended, some degree of generalized tenderness without guarding Skin Other: Warm dry no rash Neuro General: patient oriented x3, gait normal, no focal motor deficits and CN's II- XI intact bilaterally Psych Other: Somewhat anxious, yet cooperative Course Reevaluation(s) Reevaluation #1: Patient discharged on down time paperwork Medications Administered Discontinued Medications Generic Name Dose Route Start Last Admin Trade Name Ian PRN Reason Stop Dose Admin Hydroxyzine HCl 50 mg 10/06/25 00:57 10/06/25 01:00 Hydroxyzine Hcl 50 Mg Tablet PO 10/06/25 00:58 50 mg ONCE ONE Administration Medical Decision Making Medical Decision Making [facility] Narrative: 20-year-old female with a history of anxiety and depression, a presents with anxiety. Patient states she is constipated, she has developed abdominal cramping and nausea, it is making her anxious. She states they recently increased her dose of Lexapro, she took her 1st escalated dose today, it is not helping. Denies distention, active vomiting, fever or inability to pass flatus. Problem: Anxiety depression History: Per patient I have considered the following differential diagnoses: Anxiety, panic attack, bowel obstruction, constipation Plan: In regard to the constipation, she has no obstructive symptoms, adding on a KUB. Screening labs obtained and are reassuring, she is not . In regard to her anxiety, they just escalated her medication, giving her a dose of hydroxyzine it will help with her nausea as well there was no indication for advanced imaging I have independently reviewed the following tests: Labs: No leukocytosis, not anemic, no electrolyte abnormality, not present KUB: Evidence of constipation per my read....... I have viewed the x-ray at the beginning of our downtime overnight Differential Diagnosis Differential Diagnoses: The differential diagnosis associated with the presentation includes See [facility] Admission/Observation Consideration of admission/observation: Escalation of care including admission/observation considered Not applicable Lab Data [facility] Lab Attestation statement: I reviewed the patient's lab results. 10/05/25 21:52 10/05/25 21:52 Labs: Lab Results 10/05/25 Range/Units 21:52 WBC 8.2 (4.8-10.8) X10*3/uL RBC 4.74 (4.20-5.50) X10*6/uL Hgb 14.4 (12.0-16.0) g/dl Hct 40.2 (37.0-47.0) % MCV 84.8 (80.0-98.0) fL MCH 30.4 (27.0-33.0) pg MCHC 35.8 H (31.0-35.0) g/dl RDW 11.6 (11.0-16.0) % Plt Count 335 (160-400) X10*3/uL MPV 9.2 L (9.4-12.3) fL Immature Gran % (Auto) 0.2 (0.0-0.4) % Neut % (Auto) 64.7 (45-73) % Lymph % (Auto) 28.6 (20-40) % Smyth % (Auto) 6.3 (2-11) % Eos % (Auto) 0.1 (0-4) % Baso % (Auto) 0.1 (0-2) % Lymph # (Auto) 2.3 (1.2-4.9) X10*3/uL Smyth # (Auto) 0.5 (0.1-1.2) X10*3/uL Eos # (Auto) 0.0 (0.0-0.4) X10*3/uL Baso # (Auto) 0.0 (0.0-0.2) X10*3/uL Abs Immat Gran (auto) 0.02 (0.00-0.03) X10*3/uL Absolute Neuts (auto) 5.3 (2.0-8.3) x10*3/uL Absolute Nucleated RBC 0.000 (0.0-0.012) X10*3/uL Nucleated RBC % (auto) 0.0 (0.0-0.2) /100WBC Sodium 142 (135-145) mmol/L Potassium 4.0 (3.3-5.1) mmol/L Chloride 110 H (96-108) mmol/L Carbon Dioxide 17 L (22-29) mmol/L Anion Gap 19 (12-20) BUN 8 L (9-16) mg/dL Creatinine 0.78 (0.5-1.4) mg/dL Estim Creat Clear Calc 107.9 Estimated GFR > 60 Random Glucose 105 (60-115) mg/dL Calcium 10.0 (8.4-10.2) mg/dL Total Bilirubin 0.5 (0.0-1.0) mg/dL AST 31 (5-31) U/L ALT 12 (0-31) U/L Alkaline Phosphatase 73 (39-117) U/L Total Protein 8.7 H (6.5-8.0) g/dL Albumin 5.2 H (3.5-5.0) g/dL Beta HCG, Quant < 2 mIU/mL Independent Interpretation I performed an independent interpretation of an: Plain X-Ray Discharge Plan Discharge Clinical Impression: Acute anxiety, Constipation Patient Disposition: Home, Self-Care Additional Instructions: Discharge instructions prior down time paperwork Prescriptions: No Action ibuprofen 600 mg tablet 600 mg PO TID PRN (Reason: pain) Qty: 20 0RF Print Language: Chinese
== END 2025-10-06 21:00 | disposition home or self-care (01) ==
PROVIDERS: Emergency Provider Emergency Medicine
DX: F41.9 Anxiety disorder, unspecified (principal); K59.00 Constipation, unspecified; R11.2 Nausea with vomiting, unspecified; R00.0 Tachycardia, unspecified; R20.2 Paresthesia of skin
CPT/HCPCS: 36415; 74018; 80053; 84702; 85025; 93005; 99283

== ENCOUNTER → 2025-10-05 21:47 | Outpatient (BNV) | payer MEDICAID, SELFPAY | PROVIDERS: Emergency Provider Emergency Medicine; Visit Provider Internal Medicine | DX: R00.0 Tachycardia, unspecified (principal) | CPT/HCPCS: 93010 ==

== ENCOUNTER → 2025-10-06 00:57 | Outpatient (BNV) | payer MEDICAID, SELFPAY | PROVIDERS: Emergency Provider Emergency Medicine; Visit Provider Radiology Diagnostic Radiology | DX: K59.00 Constipation, unspecified (principal) | CPT/HCPCS: 74018 ==